=== PATIENT | male | born 2000 | race Caucasian/White ===

== ENCOUNTER 2020-11-04 02:25 | Emergency (ER) | payer BC, SELFPAY ==
[2020-11-04 02:25] VITALS: BP 131/76; PULSE 87; RESP 16; TEMP 36.5; O2SAT 100
--- NOTE | 2020-11-04 02:35 | ED.GENADULT ---
HPI - General Adult General Chief complaint: Wound/Laceration Stated complaint: spider bite Time Seen by Provider: 11/04/20 02:44 History of Present Illness HPI narrative: Patient is a 20-year-old gentleman who presents the emergency department with chief complaint of spider bite. Patient reports that he felt strange sensation on his left knee and found to little small bumps and smashed what appears to be a brown recluse bite patient reports 2 small red bumps and denies itching denies pain Related Data Home Medications Medication Instructions Recorded Confirmed Zyrtec 11/04/20 Allergies Allergy/AdvReac Type Severity Reaction Status Date / Time Bumble Bee Allergy Unknown Unknown Uncoded 11/04/20 02:32 Review of Systems Review of Systems: Narrative: A 10 system review of systems was completed on the patient and is negative except for what is stated in the HPI. Nursing and ancillary documentation was reviewed. PMFSH Comments Patient denies past medical history Social history the patient smokes marijuana Exam Narrative: Exam Narrative: GENERAL: Well-appearing, well-nourished, and in no acute distress. HEAD: Normocephalic, atraumatic. EYES: PERRLA and EOMI. ENT: Nares clear, no rhinorrhea or epistaxis. Mucous membranes moist. NECK: Supple. CHEST: Clear to auscultation. No respiratory distress. HEART: Regular rate and rhythm. No murmur heard. Normal peripheral pulses. ABDOMEN: Soft, nontender, nondistended, normal active bowel sounds. EXTREMITIES: Normal range of motion. No edema. SKIN: Warm, dry, no rash. 2 small red bumps present on the dorsum of the left knee NEURO: No focal deficits. Alert and oriented x3. PSYCH: Normal mood and affect. Course Vital Signs Vital signs: Vital Signs Temperature 36.5 C 11/04/20 02:25 Pulse Rate 87 11/04/20 02:25 Respiratory Rate 16 11/04/20 02:25 Blood Pressure 131/76 11/04/20 02:25 Pulse Oximetry 100 11/04/20 02:25 Temperature 36.5 C 11/04/20 02:25 Pulse Rate 87 11/04/20 02:25 Respiratory Rate 16 11/04/20 02:25 Blood Pressure 131/76 11/04/20 02:25 Pulse Oximetry 100 11/04/20 02:25 Medical Decision Making Vital Signs Vital Signs: Vital Signs Temperature 36.5 C 11/04/20 02:25 Pulse Rate 87 11/04/20 02:25 Respiratory Rate 16 11/04/20 02:25 Blood Pressure 131/76 11/04/20 02:25 Pulse Oximetry 100 11/04/20 02:25 Temperature 36.5 C 11/04/20 02:25 Pulse Rate 87 11/04/20 02:25 Respiratory Rate 16 11/04/20 02:25 Blood Pressure 131/76 11/04/20 02:25 Pulse Oximetry 100 11/04/20 02:25 Discharge Plan Discharge Clinical Impression: Accidental spider bite Patient Disposition: Home, Self-Care Condition: Stable Instructions: Antibiotic Form, Insect Bite or Sting (ED) Prescriptions: No Action Zyrtec RF: 0 Follow-up/Referrals: Davion Brock MD [Physician] - PHYSICIAN,BREAKER MACHINE OPERATOR [Primary Care Provider] - Time of Disposition: 02:43
== END 2020-11-04 03:01 | disposition home or self-care (01) ==
PROVIDERS: Emergency Provider Emergency Medicine
DX: S80.262A Insect bite (nonvenomous), left knee, initial encounter (principal); W57.XXXA Bitten or stung by nonvenomous insect and other nonvenomous arthropods, initial encounter
CPT/HCPCS: 99281

== ENCOUNTER 2021-04-21 12:20 | Emergency (ER) | payer BC, SELFPAY ==
--- NOTE | ~2021-04-21 | CT_ITS ---
EXAMINATION: CT cervical spine wo con EXAM DATE: 04/21/2021 14:37 INDICATION: Cervical radiculopathy. TECHNIQUE: Spiral CT of the cervical spine was performed without contrast. Axial images were reviewe d. Coronal and sagittal reformatted images cervical spine were also reviewed. The dose-length produc t (DLP) for this examination was 526.11 mGy-cm. The exposure was tailored according to patient size (auto mA exposure control), and iterative reconstruction (ASIR) was used as additional dose reduction technique. There is no prior study for comparison. FINDINGS: There is moderate reversal of the normal cervical lordosis which may be positional or spasm . The vertebral bodies are aligned in the AP dimension. Vertebral body and disc heights are well-main tained. Evidence of only mild arthropathy. The odontoid process is intact. The lateral masses of C1 line up with C2. Prevertebral soft tissue and pre-dens space are within normal limits. IMPRESSION: 1. Moderate reversal normal cervical lordosis, could indicate spasm. 2. Mild facet arthropathy. No stenosis. Reviewed, dictated and finalized at location A.
[2021-04-21 12:29] VITALS: BP 127/95; PULSE 91; RESP 16; TEMP 36.8; O2SAT 98
--- NOTE | 2021-04-21 15:30 | PC.NURSE ---
Pt declined decadron at this time. Pt reports he is no longer having neck or arm pain. Pt states he really just wants to be evaluated for his breathing. Denies cough or sob. Respirations non-labored. Pt feels he can not take a full breath at times. Dr. Cannon notified.
--- NOTE | 2021-04-21 15:53 | ED.GENADULT ---
HPI - General Adult General Chief complaint: Unspecified Stated complaint: multiple c/o Time Seen by Provider: 04/21/21 14:09 Source: patient and RN notes reviewed Mode of arrival: ambulatory Limitations: no limitations History of Present Illness HPI narrative: Patient is 21 years old white male presents with anxiety, stress, lives alone, does not have a job at this time, he graduated from college 4 months ago. Patient also complaining of upper extremity, upper back and upper chest pain started 2 weeks ago after jumping with a rope and gradually getting better. Patient used to smoke marijuana daily, quit 2 weeks ago. Patient feels like unable to take a deep breath with intermittent sighing Related Data Home Medications Medication Instructions Recorded Confirmed [facility] 11/04/20 Allergies Allergy/AdvReac Type Severity Reaction Status Date / Time Bumble Bee Allergy Unknown Unknown Uncoded 11/04/20 02:32 Review of Systems Review of Systems: CONSTITUTIONAL: Denies fever, chills, or sweats. EYES: Denies visual changes, redness, or discharge. ENT: Denies rhinorrhea, congestion, sore throat, or otalgia. CARDIOVASCULAR: Denies chest pain, palpitations, or edema. RESPIRATORY: Denies cough or dyspnea. GASTROINTESTINAL: Denies abdominal pain, nausea, vomiting, or diarrhea. GENITOURINARY: Denies dysuria or hematuria. SKIN: Denies rash or itching. MUSCULOSKELETAL: Denies back pain, joint pain, or myalgia. NEUROLOGIC: Denies headache, numbness, or weakness. PSYCHIATRIC: Denies anxiety or depression. Exam Narrative: General appearance: Well-developed, well-nourished. Patient looks very anxious, intermittent sighing, asking a lot of questions without any pain. After history of patient asked me another 1. At least 15 questions Skin: Normal color Head: Normocephalic, nontraumatic Eyes: Clear conjunctiva ENT: Oropharynx normal, ears normal, nose normal Neck: Supple, nontender Chest and respiratory: Airway patent, no respiratory distress, no accessory muscle use Heart: Regular rate/rhythm Abdomen: Soft, nontender, no organomegaly, quiet bowel sounds Vascular: Normal peripheral pulses, normal capillary refill. 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 Differential Diagnosis Differential Diagnosis: Cervical radiculopathy, musculoskeletal pain, anxiety related symptoms Vital Signs Vital Signs: Vital Signs Temperature 36.8 C 04/21/21 12:29 Pulse Rate 91 04/21/21 12:29 Respiratory Rate 16 04/21/21 12:29 Blood Pressure 127/95 H 04/21/21 12:29 Pulse Oximetry 98 04/21/21 12:29 Temperature 36.8 C 04/21/21 12:29 Pulse Rate 91 04/21/21 12:29 Respiratory Rate 16 04/21/21 12:29 Blood Pressure 127/95 H 04/21/21 12:29 Pulse Oximetry 98 04/21/21 12:29 Imaging Data Radiologist's impression: Impressions Cervical Spine CT 04/21/21 14:39 IMPRESSION: 1. Moderate reversal normal cervical lordosis, could indicate spasm. 2. Mild facet arthrop
[2021-04-21] MEDS: KETOROLAC (*BKC) 60 MG/2 ML VIAL IM (16:22)
[2021-04-21 16:25] VITALS: BP 130/84; PULSE 81; RESP 16; O2SAT 98
== END 2021-04-21 16:40 | disposition home or self-care (01) ==
PROVIDERS: Emergency Provider Emergency Medicine
DX: F41.9 Anxiety disorder, unspecified (principal); M79.602 Pain in left arm; M79.601 Pain in right arm
CPT/HCPCS: 72125; 96372; 99284; J1885

== ENCOUNTER 2023-06-14 05:26 | Observation (INO) | payer OTHER, BC, SELFPAY ==
[2023-06-14] VITALS (13 sets, daily range): BP systolic 102–146; BP diastolic 56–78; PULSE 55–99; RESP 13–20; TEMP 36.3–36.7; O2SAT 95–100; BMI 30.6
--- NOTE | ~2023-06-14 | CT_ITS ---
EXAMINATION: CT abdomen pelvis w con DATE: 06/14/2023 08:10 INDICATION: Perirectal, buttock pain. Perianal abscess. Dysuria. TECHNIQUE: Computed tomography (CT) of the abdomen and pelvis was performed with 100 CC Omnipaque 350 intravenous contrast. Automated exposure control and iterative reconstruction technique were employe d. Exam dose: 633.97 mGy-cm total exam DLP. COMPARISON: None. FINDINGS: The lung bases are clear. Normal heart size. No pericardial or pleural effusion. No hepatic, splenic, pancreatic, adrenal or renal space-occupying mass lesion. The gallbladder is unremarkable. No bile duct or pancreatic duct dilatation. No urinary tract calculus or hydroureteronephrosis. The urinary bladder and prostate gland are unrema rkable. Normal caliber of the abdominal aorta. No intraperitoneal or retroperitoneal or pelvic mass lesion or adenopathy or ascites is identified. Normal appendix. No bowel obstruction, bowel wall thickening, pneumatosis or intraperitoneal free air . The small perianal abscess cannot be confirmed or excluded based on this examination. No abscess is e vident otherwise. No inflammation is noted in the soft tissues of the included buttocks. Small fat-containing umbilical hernia. Included skeletal structures are normal. IMPRESSION: Cannot exclude or confirm small perianal abscess; otherwise unremarkable examination Reviewed, dictated and finalized at Location [facility]. Reviewed, dictated and finalized at location B. IMPRESSION: Cannot exclude or confirm small perianal abscess; otherwise unrema rkable examination
--- NOTE | 2023-06-14 07:32 | ED.GENADULT ---
HPI - General Adult General Chief complaint: Unspecified Stated complaint: barley walk, cannot sit down, pain on buttocks Time Seen by Provider: 06/14/23 07:15 Source: patient Mode of arrival: ambulatory History of Present Illness HPI narrative: 23 years old white male presents with severe pain at the anal area mainly during defecation. This started 5 to 6 days ago. He denies any bleeding. Or having similar symptoms. Patient denies any fever, chills, nausea, vomiting, abdominal pain or back pain. Related Data Home Medications Medication Instructions Recorded Confirmed cetirizine 10 mg capsule (Zyrtec) 10 mg PO DAILY PRN 04/28/21 04/28/21 multivitamin (Daily Multi-Vitamin 1 tablet PO DAILY 04/28/21 04/28/21 tablet) Allergies Allergy/AdvReac Type Severity Reaction Status Date / Time venom-honey bee Allergy Intermediate Swelling Verified 06/14/23 07:26 venom-wasp Allergy Intermediate Swelling Verified 06/14/23 07:26 Review of Systems Review of Systems: All systems reviewed & are unremarkable except as noted in HPI and below PMFSH Past Medical History Medical History Allergies Anxiety GERD (gastroesophageal reflux disease) Surgical History Surgical History History of tonsillectomy (~2006) Family History Family History Father Diabetes mellitus Hypertension Depression Anxiety Mother Anxiety Depression Hypertension Sibling Diabetes mellitus Social History Social History Smoking status: Never smoker (smokes marijuana most days) Alcohol intake: current Alcohol use details: 1 twice a month/Whiskey Substance use: current Living arrangements: alone Occupation/Education: student 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 Gender identity (if verbalized by the patient): Male Agree to blood products: Yes Exam Narrative: General appearance: Well-developed, well-nourished Skin: Normal color Head: Normocephalic, nontraumatic Eyes: Clear conjunctiva ENT: Oropharynx normal, ears normal, nose normal Neck: Supple, nontender Chest and respiratory: Airway patent, no respiratory distress, no accessory muscle use Heart: Regular rate/rhythm Abdomen: Soft, nontender, no organomegaly, quiet bowel sounds , Rectal exam showed no external hemorrhoids, severe diffuse tenderness around the anus, unable to insert my finger because of the severity of pain and patient very restless about it. No discharge, no erythematous changes, Vascular: Normal peripheral pulses, normal capillary refill. 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, no gross motor deficit Course Reevaluation(s) Reevaluation #1: Still in pain Date: 06/14/23 Time: 09:50 Vital Signs Vital signs: Vital Signs Temperature 36.3 C L 06/14/23 05:30 Pulse Rate 99 06/14/23 05:30 Respiratory Rate 20 06/14/23 05:30 Blood Pressure 136/72 06/14/23 05:30 Pulse Oximetry 95 06/14/23 05:30 Oxygen Delivery Room Air 06/14/23 05:30 Temperature 36.3 C L 06/14/23 05:30 Pulse Rate 73 06/14/23 08:25 Respiratory Rate 18 06/14/23 08:25 Blood Pressure 136/70 06/14/23 08:25 Pulse Oximetry 100 06/14/23 08:25 Oxygen Delivery Room Air 06/14/23 05:30 Medical Decision Making MDM Narrative Medical decision making narrative: Patient presents with anal pain mainly during defecation, physical examination as above, I was not able even to
[2023-06-14] MEDS: SODIUM CHLORIDE 0.9% IV 1,000 ML 999 ML IV CONT (07:55)
[2023-06-14 08:02] LABS: Appearance Urine Clear (Clear); Bilirubin Urine Negative (Negative); Blood Urine Negative (Negative); Color Urine Yellow (Yellow); Glucose Urine UA Negative (Negative); Ketones Urine Negative (Negative); Leukocyte Esterase Ur Negative LEU/UL (Negative); Nitrate Urine Negative (Negative); Protein Urine Negative (Negative); Specific Grav Ur 1.007 (1.001-1.035); Urobilinogen Urine 0.2 mg/dL (<2.0); pH Urine 7.5 (5.0-9.0)
[2023-06-14 08:03] LABS: Basophils Absolute Auto 0.1 K/mm3 (0.0-0.1); Basophils Percent Auto 0.6 % (0.2-1.2); Eosinophils Percent Auto 0.4 % (0-4.4); Hematocrit 47.9 % (42.0-52.0); Immature Granulocyte Absolute 0.03 K/mm3 (0.00-0.031); Immature Granulocyte Percent A 0.3 % (0-0.5); Lymphocytes Absolute Auto 1.56 K/mm3 (0.9-3.2); Lymphocytes Percent Auto 15.3 % (18.3-44.2); Mean Corpuscular HGB Conc 33.4 g/dl (32-36); Mean Corpuscular Hemoglobin 31.4 pg (26-34); Mean Corpuscular Volume 94.1 fl (80-100); Mean Platelet Volume 10.7 fl (7.4-10.4); Monocytes Absolute Auto 0.7 K/mm3 (0.1-0.6); Monocytes Percent Auto 6.4 % (2.6-8.5); Neutrophils Absolute Auto 7.9 K/mm3 (1.3-6.7); Platelet Count Result 263 k/mm3 (150-375); Red Blood Count 5.09 M/mm3 (4.6-6.20); Red Cell Distribution Width 11.8 % (11.5-14.5); White Blood Count 10.2 K/mm3 (4.5-10.0)
[2023-06-14 08:04] LABS: Estimated CRCL calculation 109 ml/min; Estimated Glomerular Filt Rate > 60
[2023-06-14 08:07] LABS: Add Urine Microscopic? NO
[2023-06-14 08:13] LABS: Alanine Aminotransferase 34 U/L (6-50); Alkaline Phosphatase 73 U/L (38-126); Anion Gap 7 mmol/L (8-16); Aspartate Amino Transferase 31 U/L (17-59); Bilirubin,Total 0.8 mg/dL (0.2-1.3); Blood Urea Nitrogen 16 mg/dL (9-20); Calcium 9.8 mg/dL (8.4-10.2); Carbon Dioxide 34 mmol/L (22-30); Chloride 97 mmol/L (98-107); Estimated CRCL calculation 121 ml/min; Estimated Glomerular Filt Rate > 60; Glucose 95 mg/dL (65-110); Lipase 42 U/L (23-300); Potassium 4.3 mmol/L (3.4-5.0); Sodium 138 mmol/L (137-145)
[2023-06-14] MEDS: ONDANSETRON INJ 4 MG/2 ML VIAL IV PUSH ×2 (10:14→14:24)
[2023-06-14] MEDS: LACTATED RINGERS 1,000 ML 125 ML IV CONT (10:15)
[2023-06-14] MEDS: HYDROmorphone HCL INJ (*CRX) 1 MG/ML SYR 0.5 MG IV PUSH ×2 (10:15→14:24)
--- NOTE | 2023-06-14 16:56 | WPDANESEPPF ---
Anes - Initial Pre Proc Eval Procedure: Operation Date: 06/14/23 17:30 Proposed Procedures p I&D Iqra-Rectal Abscess - Minerva Weir MD Date/Time: 06/14/23 16:56 Surgeon: Minerva Weir MD Pre Op Diagnosis: Anal Pain Patient Data Age: 23 Gender: M Height: 1.83 m Weight: 102.5 kg Last Vital Signs Temp 36.4 C 06/14/23 14:00 Pulse 56 L 06/14/23 14:00 Resp 16 06/14/23 14:00 BP 102/67 06/14/23 14:00 Pulse Ox 100 06/14/23 14:00 O2 Del Method Room Air 06/14/23 05:30 Allergies Allergy/AdvReac Type Severity Reaction Status Date / Time venom-honey bee Allergy Intermediate Swelling Verified 06/14/23 07:26 venom-wasp Allergy Intermediate Swelling Verified 06/14/23 07:26 Home Medications Medication Instructions Recorded Confirmed Type cetirizine 10 mg capsule (Zyrtec) 10 mg PO DAILY PRN Allergy Symptoms 04/28/21 06/14/23 History multivitamin (Daily Multi-Vitamin 1 tablet PO DAILY 04/28/21 06/14/23 History tablet) Laboratory Tests 06/14/23 06/14/23 07:42 08:02 WBC 10.2 H K/mm3 (4.5-10.0) RBC 5.09 M/mm3 (4.6-6.20) Hgb 16.0 g/dL (14.0-18.0) Hct 47.9 % (42.0-52.0) MCV 94.1 fl (80-100) MCH 31.4 pg (26-34) MCHC 33.4 g/dl (32-36) RDW 11.8 % (11.5-14.5) Plt Count 263 k/mm3 (150-375) MPV 10.7 H fl (7.4-10.4) Immature Gran % (Auto) 0.3 % (0-0.5) Neut % (Auto) 77.0 H % (45.5-73.1) Lymph % (Auto) 15.3 L % (18.3-44.2) [place] % (Auto) 6.4 % (2.6-8.5) Eos % (Auto) 0.4 % (0-4.4) Baso % (Auto) 0.6 % (0.2-1.2) Lymph # (Auto) 1.56 K/mm3 (0.9-3.2) [place] # (Auto) 0.7 H K/mm3 (0.1-0.6) Eos # (Auto) 0.0 K/mm3 (0-0.3) Baso # (Auto) 0.1 K/mm3 (0.0-0.1) Abs Immat Gran (auto) 0.03 K/mm3 (0.00-0.031) Absolute Neuts (auto) 7.9 H K/mm3 (1.3-6.7) Absolute Nucleated RBC 0.0 K/mm3 (0.0-0.012) Nucleated RBC % 0.0 % (0.0-0.2) Sodium 138 mmol/L (137-145) Potassium 4.3 mmol/L (3.4-5.0) Chloride 97 L mmol/L (98-107) Carbon Dioxide 34 H mmol/L (22-30) Anion Gap 7 L mmol/L (8-16) BUN 16 mg/dL (9-20) Creatinine 0.90 mg/dL 1.00 mg/dL (0.7-1.3) (0.8-1.5) Estim Creat Clear Calc 121 ml/min 109 ml/min Estimated GFR > 60 > 60 (59 - ) (59 - ) Glucose 95 mg/dL (65-110) Calcium 9.8 mg/dL (8.4-10.2) Total Bilirubin 0.8 mg/dL (0.2-1.3) AST 31 U/L (17-59) ALT 34 U/L (6-50) Alkaline Phosphatase 73 U/L (38-126) Total Protein 9.0 H g/dL (6.3-8.2) Albumin 5.0 g/dL (3.5-5.1) Lipase 42 U/L (23-300) Urine Color Yellow (Yellow) Urine Appearance Clear (Clear) Urine pH 7.5 (5.0-9.0) Ur Specific [place] 1.007 (1.001-1.035) Urine Protein Negative mg/dL (Negative) Urine Glucose (UA) Negative mg/dL (Negative) Urine Ketones Negative mg/dL (Negative) Ur Blood (Man) Negative (Negative) Urine Nitrate Negative (Negative) Urine Bilirubin Negative (Negative) Urine Urobilinogen 0.2 mg/dL (<2.0) Leukocyte Esterase Rfl Negative KATIE/UL (Negative) Patient hx anesthesia problems: none Family hx anesthesia problems: none Results Review: All pre-operative results and documents have been reviewed as part of the pre-operative evaluation. [facility] Past Medical History Medical History Allergies Anxiety GERD (gastroesophageal reflux disease) Surgical History Surgical History History of tonsillectomy (~2006) Family History Family History Father Diabetes mellitus Hypertension Depression Anxiety Mother An
--- NOTE | 2023-06-14 17:01 | PM.IMHP ---
H&P: HPI History of Present Illness Date/Time: 06/14/23 17:01 Chief Complaint: Perianal pain Narrative: The patient is a 23-year-old male presenting to the emergency department complaining of severe perirectal pain. The patient reports that the pain started about a week ago after running on the treadmill. The patient reports some discomfort that has progressively worsened to severe, sharp, constant pain. The patient has tried some [id number] medications and creams without relief. The patient reports that the pain is much worse with bowel function. The patient denies previous episodes. Review of Systems Review of Systems: All systems reviewed & are unremarkable except as noted in HPI and below PMFSH Past Medical History Medical History Allergies Anxiety GERD (gastroesophageal reflux disease) Surgical History Surgical History History of tonsillectomy (~2006) Family History Family History Father Diabetes mellitus Hypertension Depression Anxiety Mother Anxiety Depression Hypertension Sibling Diabetes mellitus Social History Social History Smoking status: Never smoker Alcohol intake: never Alcohol use details: 1 twice a month/Guy Substance use: current Substance use type: marijuana Last use: 06/12/12 Lack of Transportation: No Lack of Food: Never True Current Housing: I Have Housing Concerned About Future Housing: No Difficulty Paying Gas/Electric Bills: No Difficulty Paying for Meds: No Currently Unemployed: No Education: Bachelor's Degree Difficulty w/ Childcare or Family Care: No Living arrangements: alone Occupation/Education: student 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 Gender identity (if verbalized by the patient): Male Spiritual care concerns: No Agree to blood products: Yes Meds Home Medications and Allergies Home Medications Medication Instructions Recorded Confirmed Type cetirizine 10 mg capsule (Zyrtec) 10 mg PO DAILY PRN Allergy Symptoms 04/28/21 06/14/23 History multivitamin (Daily Multi-Vitamin 1 tablet PO DAILY 04/28/21 06/14/23 History tablet) Allergies Allergy/AdvReac Type Severity Reaction Status Date / Time venom-honey bee Allergy Intermediate Swelling Verified 06/14/23 07:26 venom-wasp Allergy Intermediate Swelling Verified 06/14/23 07:26 Vital Signs Vital Signs - 24 hr 06/14/23 05:30 06/14/23 08:25 06/14/23 10:07 Temperature 36.3 C L 36.4 C Pulse Rate 99 73 80 Respiratory Rate 20 18 16 Blood Pressure 136/72 136/70 130/75 Pulse Oximetry 95 100 98 Oxygen Delivery Room Air 06/14/23 10:20 06/14/23 12:13 06/14/23 14:00 Temperature 36.6 C 36.7 C 36.4 C Pulse Rate 80 55 L 56 L Respiratory Rate 16 16 16 Blood Pressure 135/72 121/66 102/67 Pulse Oximetry 100 99 100 Oxygen Delivery Exam Const: General: cooperative, no acute distress, uncomfortable and obese HENMT: Head: normal to inspection, normocephalic and atraumatic Eyes: General: appearance normal, both eyes and all related structures Neck: Neck: normal visual inspection, full ROM and no lymphadenopathy Resp: Effort & Inspection: normal respiratory effort Auscultation: clear to auscultation bilaterally Cardio: Rate: regular rate Rhythm: regular rhythm GI: Inspection: normal to inspection and non-distended GI Palp: No abdominal tenderness and Yes Soft to palpation Rectal Exam: abscess Skin: General skin exam: normal color and no rashes or lesions noted Neuro: General: patient oriented x3 and CN's II-XI intact bilaterally Extrem: General: normal to inspection and full ROM Psych: Appearance: grossly normal H&P: Results Labs Labs: Short CBC 06/14/23 Range/Units 07:42 WBC
--- NOTE | 2023-06-14 17:06 | WPDHPUPDATE1 ---
History and Physical Update Update Date/Time: 06/14/23 17:06 History and Physical has been reviewed, including an updated exam of the patient. There are NO changes in the patient's condition. Risks, benefits, and alternatives have been discussed and questions answered. Patient agrees to proceed with procedure.
[2023-06-14] MEDS: ceFAZolin SODIUM 1 GM VIAL 2 GM IV PUSH (17:18)
[2023-06-14] MEDS: BUPIVACAINE/EPINEPHRINE 0.5% 10 ML VIAL 20 ML INFILTRATE (17:39)
--- NOTE | 2023-06-14 17:45 | P.OP_ITS ---
Procedure Note - Detailed Date of Procedure 06/14/23 Pre-op Diagnosis Perirectal abscess Post-op Diagnosis Same Procedure Performed exam under anesthesia, complex incision and drainage perirectal abscess measuring 4 x 3 cm Surgeon Minerva Weir MD Anesthesia General and Local Indications 23-year-old male presenting to the emergency department with severe perirectal pain. Exam consistent with perirectal abscess Findings left perirectal abscess measuring 4 x 3 cm, no fistula noted Description of Procedure The patient was taken the operating room placed modified lithotomy position. After adequate induction of general anesthesia, the patient was prepped and draped in the normal sterile fashion. A time-out was then done to verify the patient's identity, as well as the procedure being performed. I began by doing an exam under anaesthesia. I 1st digitally examined the anal canal and noted a area of fluctuance and induration in the left perirectal area. I then used a Holden retractor to examine the rest of the anal canal and rectum which were completely unremarkable. I then localized the area in and around this left perirectal abscess. Using a 15 blade scalpel, I made an incision over the most fluctuant area of this abscess. A large amount of purulent drainage was noted. Sterile cultures were obtained at this time. I then used a hemostat to break up further loculations and drained further purulent pockets. The area measured approximately 4 x 3 cm and was contained within the subcutaneous cavity. Of note I did use a probe and no fistula tracts were noted. I then packed the c avity with quarter-inch iodoform. Sterile dressing was then placed. The patient tolerated the procedure well. He was extubated in the operating room postoperatively and will be transferred to the recovery room in stable condition. Estimated Blood Loss 5 Packing Yes Pathology Yes Complications No immediate complications Condition Stable Disposition PACU [facility] Billing Surgery - Charge Forward: Surgery Billing
--- NOTE | 2023-06-14 18:29 | PC.NURSE ---
Pt back to room post PACU. Assisted to bed. Offers no complaints at present. Mother at bedside.
--- NOTE | 2023-06-17 12:58 | PM.DS ---
DS: Admitting Diagnosis Discharge Date 06/14/23 Admitting Diagnosis left perirectal abscess DS: Discharge Diagnosis Discharge Diagnosis (1) Perirectal abscess: Code(s): K61.1 - Rectal abscess Status: Acute Assessment and Plan: status post complex incision and drainage, continue routine postoperative care including local wound care, home with p.o. analgesia and antibiotics, follow-up 2 weeks DS: Summary Hospital Course Reason for hospitalization: left perirectal abscess Hospital Course: The patient is a 23-year-old male presenting to the emergency department complaining of severe perirectal pain. Workup in the emergency department, including imaging was significant for perirectal abscess. The patient was admitted to the surgical service and started on IV antibiotics. Upon evaluation, it was decided the patient would need complex incision and drainage in the operating room. The patient was taken to the operating room and complex incision and drainage of left perirectal abscess was done, please see full operative report for details of that procedure. Postoperatively, the patient did well and was transferred back to the floor. He reported that his pain was much improved and was up and ambulating without difficulty. He was able to tolerate a diet and the decision was made to discharge him home with p.o. analgesia and antibiotics. The patient will follow up with me in 2 weeks. Status at Discharge Functional status at discharge: independent ambulation Overall status at discharge: patient is progressing back to baseline Time Spent with Patient Time attestation: Total time spent providing and/or coordinating discharge services: Time spent: Less than 30 minutes Exam Const: General: cooperative, comfortable and no acute distress Resp: Auscultation: clear to auscultation bilaterally Cardio: Rate: regular rate Rhythm: regular rhythm GI: Inspection: normal to inspection Other: L perirectal abscess - packed, drsg C/D/I DS: Data Data Completed and Pending Labs on day of discharge: Preliminary micro results at discharge 06/14/23 17:33 Anaerobic Culture - Preliminary Abscess Bacteroides fragilis group Discharge Plan Discharge Attending physician on discharge: Minerva Weir Consulting providers: Dwayne Miller; Bipin Walker Discharging Clinician: Minerva Weir Patient Disposition: Home, Self-Care Activity: may shower Diet: as tolerated Wound Care Instructions: incision open to air Discharge Instructions: sit in tub tomorrow and remove packing cont sitz baths daily for [address] dry guaze in perirectal area for 5 days Patient Instructions: Antibiotic Form, Pain Management (GEN) Stand Alone Forms: General Discharge Information Follow-up/Referrals: Minerva Weir MD [Physician] - 2 Weeks Discharge Medications: New hydrocodone-acetaminophen 5-325 mg tablet 1 tablet PO Q6H PRN (Reason: pain) Qty: 20 0RF docusate sodium [Colace] 100 mg capsule 100 mg PO BID Qty: 20 0RF sulfamethoxazole-trimethoprim [Bactrim DS] 800-160 mg tablet 1 tablet PO Q12H Qty: 14 0RF Continued multivitamin [Daily Multi-Vitamin] Tablet 1 tablet PO DAILY Zyrtec 10 mg capsule 10 mg PO DAILY PRN (Reason: Allergy Symptoms) Date of admission: 06/14/23 09:55 Primary Care Provider: UNKNOWN,DOCTOR Admitting Provider: Minerva Weir Attending physician on admission: Minerva Weir Condition: Stable
== END 2023-06-14 23:22 | disposition home or self-care (01) ==
LOC: ANHED 10:00 → ANH3MEDSUR 10:53
PROVIDERS: Admitting Provider Surgery; Emergency Provider Emergency Medicine; Visit Provider Surgery
PROC: (CPT 46040; principal; 2023-06-14 17:30)
DX: K61.1 Rectal abscess (principal); B96.6 Bacteroides fragilis [B. fragilis] as the cause of diseases classified elsewhere; K21.9 Gastro-esophageal reflux disease without esophagitis; F41.9 Anxiety disorder, unspecified; F10.90 Alcohol use, unspecified, uncomplicated; F12.90 Cannabis use, unspecified, uncomplicated; Z79.899 Other long term (current) drug therapy; Z81.8 Family history of other mental and behavioral disorders
CPT/HCPCS: 46040; 36415; 74177; 80053; 81003; 83690; 85025; 87070; 87075; 87076; 87205; 96360; 96361; 99285; G0378; J0330; J0690; J1170; J1200; J2250; J2270; J2405; J2704; J7030; J7120; Q9967